=== PATIENT | female | born 1940 | race Caucasian/White ===

== ENCOUNTER 2018-07-25 12:30 | Emergency (ER) | payer MEDICARE ==
[2018-07-25] MEDS: ACETAMINOPHEN 500 MG TAB PO (13:26)
== END 2018-07-25 14:40 | disposition home or self-care (01) ==
LOC: FTE 12:30
DX: S42.201A Unspecified fracture of upper end of right humerus, initial encounter for closed fracture (principal); E11.9 Type 2 diabetes mellitus without complications; W01.0XXA Fall on same level from slipping, tripping and stumbling without subsequent striking against object, initial encounter; Y92.9 Unspecified place or not applicable
CPT/HCPCS: 29105; 73030-RT; 73060-RT; 99283-25